=== PATIENT | female | born 1945 | race Caucasian/White ===

== ENCOUNTER 2017-10-02 08:28 | Day surgery (SDC) | payer OTHER, MEDICARE ==
[2017-10-02 09:49] VITALS: BMI 20.1
[2017-10-02] MEDS ORDERED: PROPOFOL 20 ML ONE ×5 (10:14)
[2017-10-02] MEDS ORDERED: LIDOCAINE HCL/PF 2% SDV 5ML VIAL ONE (10:14)
[2017-10-02 11:14] VITALS: TEMP 98.3
[2017-10-02] MEDS ORDERED: NITROGLYCERIN SUBLINGUAL 1/150 0.4 MG TAB ONE (11:32)
[2017-10-02 13:12] VITALS: BP 136/82; PULSE 62
--- NOTE | 2017-10-03 16:09 | PATH ---
Surgical Pathology Report Patient Name: BRIAN THACKER [facility]. Rec. #: [id number] /Age/Gender: 1945 (Age: 72) / F Account: [id number] Location: [facility]-ENDOSCOPY Taken: 10/02/2017 Received: 10/02/2017 Reported: 10/03/2017 Physicians: Kelsey Do M.D. Specimen(s) Received A: POLYP SIGMOID B: RECTAL POLYPS Clinical History Polyps surveillance Postoperative diagnosis: Colon polyps, diverticulosis Final Diagnosis A. SIGMOID, POLYP, POLYPECTOMY: TUBULAR ADENOMA. B. RECTAL POLYPS, BIOPSY: HYPERPLASTIC POLYPS. Electronically Signed Verona Felder M.D. Gross Description A. Received in formalin, labeled "sigmoid polyp" is a garcia, irregular portion of soft tissue measuring 0.8 cm. in greatest dimension. The specimen is submitted in toto in one cassette. B. Received in formalin, labeled "biopsy rectal polyps" are 4 garcia, irregular portions of soft tissue ranging from 0.1-0.4 cm. in greatest dimension. The specimens are submitted in toto in one cassette. /10/02/2017 saudi10/02/2017
== END 2017-10-02 11:55 | disposition home or self-care (01) ==
LOC: JASU-ENDO 08:28
PROVIDERS: ATTEND Internal Medicine Gastroenterology
PROC: 0DBP8ZX Excision of Rectum, Via Natural or Artificial Opening Endoscopic, Diagnostic (ICD-10-PCS; 2017-10-02)
PROC: 0DBN8ZX Excision of Sigmoid Colon, Via Natural or Artificial Opening Endoscopic, Diagnostic (ICD-10-PCS; principal; 2017-10-02 09:45)
DX: Z12.11 Encounter for screening for malignant neoplasm of colon (principal); Z83.71 Family history of colonic polyps; D12.5 Benign neoplasm of sigmoid colon; K62.1 Rectal polyp; K57.30 Diverticulosis of large intestine without perforation or abscess without bleeding; I10 Essential (primary) hypertension; M06.9 Rheumatoid arthritis, unspecified
CPT/HCPCS: 88305-TC

== ENCOUNTER 2018-06-01 07:26 | Day surgery (SDC) | payer OTHER, MEDICARE ==
[2018-05-31 17:07] VITALS: BMI 22.0
[2018-06-01] MEDS ORDERED: BUPIVACAINE HCL/PF 0.5% (5MG/ML) 10 ML VIAL ONE (08:51)
[2018-06-01] MEDS ORDERED: LIDOCAINE HCL 1%, 10 MG/ML (20ML VIAL) ONE (08:51)
[2018-06-01] MEDS ORDERED: MIDAZOLAM HCL 2 MG/2 ML SINGLE DOSE VIAL ONE (09:09)
[2018-06-01] MEDS ORDERED: PROPOFOL 20 ML ONE ×2 (09:09→09:34)
[2018-06-01] MEDS ORDERED: ceFAZolin SODIUM 1 GM VIAL IVPB ONE (09:17)
[2018-06-01] MEDS ORDERED: ceFAZolin SODIUM 1 GM VIAL ONE (09:22)
[2018-06-01] MEDS ORDERED: DEXAMETHASONE SOD PHOSPHATE 4 MG/1 ML VIAL ONE (09:23)
[2018-06-01] MEDS ORDERED: LIDOCAINE HCL 1%, 10 MG/ML (20ML VIAL) NR ONE (09:25)
[2018-06-01] MEDS ORDERED: BUPIVACAINE HCL/PF 0.5% (5MG/ML) 10 ML VIAL IJ ONE ×3 (09:26→09:39)
[2018-06-01] MEDS ORDERED: ONDANSETRON 4 MG/2 ML VIAL IVPUSH PRN (10:14)
[2018-06-01] MEDS ORDERED: LACTATED RINGERS SOLUTION 1,000 ML IV SCH (10:15)
[2018-06-01 12:26] VITALS: BP 134/70; PULSE 66; TEMP 97.5
--- NOTE | 2018-06-04 14:52 | PATH ---
Surgical Pathology Report Patient Name: BRIAN THACKER Med. Rec. #: [id number] /Age/Gender: 1945 (Age: 73) / F Account: [id number] Location: [facility] SURGICAL Taken: 06/01/2018 Received: 06/01/2018 Reported: 06/04/2018 Physicians: Randall Grigsby DPM Specimen(s) Received LEFT 4TH TOE Clinical History Hammertoe left toe Final Diagnosis FOURTH TOE, LEFT, AMPUTATION: BONE WITH FOCAL REACTIVE AND DEGENERATIVE CHANGES. SKIN AND UNDERLYING SOFT TISSUE WITHOUT SIGNIFICANT PATHOLOGIC FINDINGS. SURGICAL MARGINS ARE VIABLE. Electronically Signed Kelsey Penny M.D. Gross Description Received in formalin labeled "left fourth toe," is a 3.5 x 1.5 x 1.5 cm toe amputation specimen. The epidermal surface is unremarkable. No lesions are identified. The underlying bone is yellow and hard. [employer] sections are submitted in 3 cassettes as follows: 1-bone margin, following decalcification; 2-skin and soft tissue margin; 3-cross section of toe, following decalcification. /06/01/2018 [facility]06/01/2018
--- NOTE | 2018-06-05 09:09 | OP ---
DATE OF OPERATION: 06/01/2018 SURGEON: Randall Grigsby DPM [employer]: PREOPERATIVE DIAGNOSIS: Left foot 3rd digit osteomyelitis. POSTOPERATIVE DIAGNOSIS: Left foot 3rd digit osteomyelitis. PROCEDURE: Left foot 3rd digit amputation. ESTIMATED BLOOD LOSS: 5 mL. HEMOSTASIS: Pneumatic ankle tourniquet at 250 mmHg. ANESTHESIA: IV MAC with local. Patient was brought to the operating room table and placed in a supine position. After adequate IV sedation was given, the left foot was then injected with 8 mL of 1% lidocaine plain. At this time, the left foot was then draped and prepped in the usual aseptic fashion, and the tourniquet was applied to the ankle. After exsanguination of the left lower extremity, the pneumatic ankle tourniquet was inflated to 225 mmHg. At this time, attention was directed to the left 3rd metatarsophalangeal joint where a circumferential incision was made using a number-15 blade. At this time, the left 3rd metatarsophalangeal joint was then disarticulated and passed from the operative field for specimen. There was healthy bleeding noted throughout the surgical site, and surgical site was then reapproximated using 3-0 nylon in simple suture technique. Patient tolerated the procedure well, and the surgical site was then dressed with Adaptic, 4 x 4, Guille, and tape. The tourniquet was deflated at this time with a prompt hyperemic response noted to the left foot, and patient was transferred to PACU in good, stable condition with neurovascular status intact to the left foot. Patient disposition to home and weight bear as tolerated using the surgical shoe. dictating for YOSSI Reyes DPM /[id number]
== END 2018-06-01 12:00 | disposition home or self-care (01) ==
LOC: JASU-SURG 07:26
PROVIDERS: ATTEND Podiatrist Foot Surgery
PROC: 0Y6U0Z0 Detachment at Left 3rd Toe, Complete, Open Approach (ICD-10-PCS; principal; 2018-06-01 09:00)
DX: M86.9 Osteomyelitis, unspecified (principal); M20.42 Other hammer toe(s) (acquired), left foot; I10 Essential (primary) hypertension
CPT/HCPCS: 88305-TC; 88311-TC; 94760

== ENCOUNTER 2020-09-07 06:08 | Day surgery (SDC) | payer OTHER, MEDICARE ==
[2020-09-03 13:33] VITALS: BMI 23.2
[2020-09-07] MEDS ORDERED: ceFAZolin SODIUM 1 GM VIAL ONE ×2 (07:20→09:33)
[2020-09-07] MEDS ORDERED: GENTAMICIN SO4 80 MG/2 ML VIAL ONE (07:20)
[2020-09-07] MEDS ORDERED: MIDAZOLAM HCL 2 MG/2 ML SINGLE DOSE VIAL ONE (08:13)
[2020-09-07] MEDS ORDERED: PROPOFOL 20 ML ONE ×2 (08:13)
[2020-09-07] MEDS ORDERED: ROCURONIUM BROMIDE 50 MG/5 ML SYRINGE ONE (08:13)
[2020-09-07] MEDS ORDERED: LIDOCAINE HCL 2% JELLY (5 ML/TUBE) ONE (09:33)
[2020-09-07] MEDS ORDERED: DEXAMETHASONE SOD PHOSPHATE 4 MG/1 ML VIAL ONE (09:33)
[2020-09-07] MEDS ORDERED: LIDOCAINE HCL/PF 2% SDV 5ML VIAL ONE (09:33)
[2020-09-07] MEDS ORDERED: ONDANSETRON 4 MG/2 ML VIAL ONE (09:33)
[2020-09-07] MEDS ORDERED: EPHEDRINE SULFATE/0.9% NACL/PF 50 MG/10 ML SYRINGE NR ONE (09:59)
[2020-09-07] MEDS ORDERED: ONDANSETRON 4 MG/2 ML VIAL IVPUSH PRN (13:09)
[2020-09-07] MEDS ORDERED: oxyCODONE HCL 5 MG TABLET PO PRN ×3 (13:09→13:22)
[2020-09-07] MEDS ORDERED: LACTATED RINGERS SOLUTION 1,000 ML IV SCH ×2 (13:15→13:30)
[2020-09-07] MEDS ORDERED: ONDANSETRON 4 MG/2 ML VIAL IVPB PRN (13:22)
[2020-09-07] MEDS ORDERED: ALBUTEROL SO4 HFA INHALER IH PRN (13:30)
[2020-09-07] MEDS ORDERED: ACETAMINOPHEN 1000 MG/100 ML VIAL (NON FORMULARY) IVPB ONE (13:48)
[2020-09-07] MEDS ORDERED: ACETAMINOPHEN INJECTION 100 ML IVPB ONE (13:51)
[2020-09-07 14:53] VITALS: TEMP 97.8
[2020-09-07 15:31] VITALS: BP 130/82; PULSE 76
== END 2020-09-07 15:33 | disposition home or self-care (01) ==
LOC: FASU 06:08
PROVIDERS: ATTEND Plastic Surgery
PROC: 0HRV0JZ Replacement of Bilateral Breast with Synthetic Substitute, Open Approach (ICD-10-PCS; 2020-09-07)
PROC: 0HQV0ZZ Repair Bilateral Breast, Open Approach (ICD-10-PCS; 2020-09-07)
PROC: 0HPU0JZ Removal of Synthetic Substitute from Left Breast, Open Approach (ICD-10-PCS; principal; 2020-09-07 09:20)
PROC: 0HPT0JZ Removal of Synthetic Substitute from Right Breast, Open Approach (ICD-10-PCS; 2020-09-07 09:20)
DX: T85.44XA Capsular contracture of breast implant, initial encounter (principal); Y82.8 Other medical devices associated with adverse incidents; Y92.9 Unspecified place or not applicable; N64.81 Ptosis of breast; K13.0 Diseases of lips
CPT/HCPCS: 11950; 15777; 19342; 19380; L8600; 88300-TC; 88304-TC; 94760; J0131

== ENCOUNTER 2020-10-23 04:50 | Day surgery (SDC) | payer OTHER, MEDICARE ==
[2020-10-21 17:50] VITALS: BMI 23.2
[2020-10-23] MEDS ORDERED: LIDOCAINE HCL 1%, 10 MG/ML (20ML VIAL) ONE (12:34)
[2020-10-23] MEDS ORDERED: MIDAZOLAM HCL 2 MG/2 ML SINGLE DOSE VIAL ONE ×2 (13:19→13:20)
[2020-10-23] MEDS ORDERED: LIDOCAINE HCL 1%, 10 MG/ML (20ML VIAL) PNB ONE (13:28)
[2020-10-23] MEDS ORDERED: ceFAZolin SODIUM 1 GM VIAL IVPB ONE (13:34)
[2020-10-23] MEDS ORDERED: PROPOFOL 20 ML ONE (13:37)
[2020-10-23] MEDS ORDERED: oxyCODONE HCL 5 MG TABLET PO PRN (13:43)
[2020-10-23] MEDS ORDERED: BUPIVACAINE HCL/PF 0.5% (5MG/ML) 10 ML VIAL PNB ONE ×2 (13:44→14:03)
[2020-10-23] MEDS ORDERED: ceFAZolin SODIUM 1 GM VIAL ONE (14:07)
[2020-10-23] MEDS ORDERED: DEXAMETHASONE SOD PHOSPHATE 4 MG/1 ML VIAL ONE (14:07)
[2020-10-23 14:25] VITALS: TEMP 97.5
[2020-10-23 16:02] VITALS: BP 164/80; PULSE 66
== END 2020-10-23 15:25 | disposition home or self-care (01) ==
LOC: JASU-SURG 04:50
PROVIDERS: ATTEND Podiatrist Foot Surgery
PROC: 0Y6V0Z0 Detachment at Right 4th Toe, Complete, Open Approach (ICD-10-PCS; principal; 2020-10-23 13:00)
DX: M06.9 Rheumatoid arthritis, unspecified (principal); M20.41 Other hammer toe(s) (acquired), right foot
CPT/HCPCS: 88304-TC; 88311-TC

== ENCOUNTER 2021-01-19 04:52 | Day surgery (SDC) | payer OTHER, MEDICARE ==
[2021-01-15 19:00] VITALS: BMI 22.8
[2021-01-19 12:16] VITALS: TEMP 97.2
[2021-01-19 13:17] VITALS: BP 156/70; PULSE 61
[2021-01-19 13:33] LABS: BLOOD UREA NITROGEN 17.4 mg/dL (7-18); CALCIUM 9.2 mg/dL (8.5-10.1)
[2021-01-19 13:37] LABS: CREATININE 0.9 mg/dL (0.55-1.3)
== END 2021-01-19 13:06 | disposition home or self-care (01) ==
LOC: JASU-ENDO 04:52
PROVIDERS: ATTEND Internal Medicine Gastroenterology
PROC: 0DB78ZX Excision of Stomach, Pylorus, Via Natural or Artificial Opening Endoscopic, Diagnostic (ICD-10-PCS; 2021-01-19)
PROC: 0DB68ZX Excision of Stomach, Via Natural or Artificial Opening Endoscopic, Diagnostic (ICD-10-PCS; principal; 2021-01-19 12:15)
DX: K31.7 Polyp of stomach and duodenum (principal); K44.9 Diaphragmatic hernia without obstruction or gangrene; K29.50 Unspecified chronic gastritis without bleeding
CPT/HCPCS: 36415; 80048

== ENCOUNTER 2021-02-02 04:31 | Day surgery (SDC) | payer OTHER, MEDICARE ==
[2021-01-29 13:33] VITALS: BMI 22.8
[2021-02-02 12:42] VITALS: BP 161/98; PULSE 63
[2021-02-02 12:53] VITALS: TEMP 97
== END 2021-02-02 12:56 | disposition home or self-care (01) ==
LOC: JASU-ENDO 04:31
PROVIDERS: ATTEND Internal Medicine Gastroenterology
PROC: 0DBP8ZX Excision of Rectum, Via Natural or Artificial Opening Endoscopic, Diagnostic (ICD-10-PCS; principal; 2021-02-02 11:00)
DX: D12.8 Benign neoplasm of rectum (principal); K57.30 Diverticulosis of large intestine without perforation or abscess without bleeding; K64.8 Other hemorrhoids; R93.3 Abnormal findings on diagnostic imaging of other parts of digestive tract
CPT/HCPCS: 88305-TC

== ENCOUNTER 2021-11-12 04:16 | Day surgery (SDC) | payer OTHER, MEDICARE ==
[2021-11-10 15:02] VITALS: BMI 22.6
[~2021-11-12 04:16] MED LIST: BUPIVACAINE HCL/PF 0.75% 10 ML VIAL NR ONE
[2021-11-12] MEDS ORDERED: BUPIVACAINE HCL/PF 0.75% 10 ML VIAL ONE (07:56)
[2021-11-12] MEDS ORDERED: LIDOCAINE HCL/PF 1% SDV 5ML VIAL ONE (07:56)
[2021-11-12 08:45] VITALS: PULSE 60
[2021-11-12] MEDS ORDERED: LIDOCAINE HCL 1% PRESERVATIVE FREE - 30ML VIAL IJ ONE (10:52)
[2021-11-12] MEDS ORDERED: BUPIVACAINE HCL/PF 0.75% 10 ML VIAL NR ONE (11:04)
[2021-11-12 11:32] VITALS: BP 178/81; RESP 18; TEMP 98.8
== END 2021-11-12 11:32 | disposition home or self-care (01) ==
LOC: JASU-SURG 04:16
PROVIDERS: ATTEND Pain Medicine Pain Medicine
PROC: BR16YZZ Fluoroscopy of Lumbar Facet Joint(s) using Other Contrast (ICD-10-PCS; 2021-11-12)
PROC: 3E0T3BZ Introduction of Anesthetic Agent into Peripheral Nerves and Plexi, Percutaneous Approach (ICD-10-PCS; principal; 2021-11-12 10:00)
DX: M47.816 Spondylosis without myelopathy or radiculopathy, lumbar region (principal)
CPT/HCPCS: 76000-TC-FY

== ENCOUNTER 2022-04-29 04:03 | Day surgery (SDC) | payer OTHER, MEDICARE ==
[2022-04-25 16:12] VITALS: BMI 22.6
[2022-04-29 06:39] VITALS: RESP 16
[2022-04-29] MEDS ORDERED: LIDOCAINE HCL/PF 1% SDV 5ML VIAL ONE (07:26)
[2022-04-29 10:21] VITALS: BP 134/54; PULSE 65; TEMP 96.9
== END 2022-04-29 09:30 | disposition home or self-care (01) ==
LOC: JASU-SURG 04:03
PROVIDERS: ATTEND Pain Medicine Pain Medicine
PROC: 01HY3MZ Insertion of Neurostimulator Lead into Peripheral Nerve, Percutaneous Approach (ICD-10-PCS; principal; 2022-04-29 08:31)
DX: G89.4 Chronic pain syndrome (principal); G58.8 Other specified mononeuropathies
CPT/HCPCS: 64555; C1778; 76000-TC-FY

== ENCOUNTER 2022-05-17 04:13 | Day surgery (SDC) | payer OTHER, MEDICARE ==
[2022-05-12 13:23] VITALS: BMI 22.6
[~2022-05-17 04:13] MED LIST changes: -BUPIVACAINE HCL/PF 0.75% 10 ML VIAL NR ONE; +LIDOCAINE HCL 1% PRESERVATIVE FREE - 30ML VIAL IJ ONE; +LIDOCAINE HCL 2% (50ML VIAL) NR ONE
[2022-05-17] MEDS ORDERED: LIDOCAINE HCL/PF 2% SDV 5ML VIAL ONE (07:27)
[2022-05-17] MEDS ORDERED: BUPIVACAINE HCL/PF 0.25% (2.5MG/ML) 10 ML VIAL ONE (07:27)
[2022-05-17] MEDS ORDERED: LIDOCAINE HCL/PF 1% SDV 5ML VIAL ONE (07:28)
[2022-05-17 09:47] VITALS: RESP 18
[2022-05-17] MEDS ORDERED: LIDOCAINE HCL 1% PRESERVATIVE FREE - 30ML VIAL IJ ONE ×2 (10:20)
[2022-05-17] MEDS ORDERED: LIDOCAINE HCL/PF 2% SDV 5ML VIAL INF ONE ×2 (10:22)
[2022-05-17 11:28] VITALS: BP 127/80; PULSE 68; TEMP 97.9
== END 2022-05-17 11:17 | disposition home or self-care (01) ==
LOC: JASU-SURG 04:13
PROVIDERS: ATTEND Pain Medicine Pain Medicine
PROC: 01HY3MZ Insertion of Neurostimulator Lead into Peripheral Nerve, Percutaneous Approach (ICD-10-PCS; principal; 2022-05-17 11:00)
DX: G89.4 Chronic pain syndrome (principal)
CPT/HCPCS: 64555; C1778; 76000-TC-FY

== ENCOUNTER 2022-06-14 04:06 | Day surgery (SDC) | payer OTHER, MEDICARE ==
[2022-06-07 17:46] VITALS: BMI 22.6
[~2022-06-14 04:06] MED LIST changes: +ACETAMINOPHEN 500 MG TABLET (FP) PO PRN; +LIDOCAINE 1% P/F 10 MG/ML VIAL PNB ONE; -LIDOCAINE HCL 1% PRESERVATIVE FREE - 30ML VIAL IJ ONE; -LIDOCAINE HCL 2% (50ML VIAL) NR ONE
[2022-06-14 09:30] VITALS: RESP 18
[2022-06-14] MEDS ORDERED: LIDOCAINE 1% P/F 10 MG/ML VIAL PNB ONE (10:32)
[2022-06-14] MEDS ORDERED: LIDOCAINE HCL/PF 1% SDV 5ML VIAL ONE (12:00)
[2022-06-14 13:53] VITALS: BP 138/72; PULSE 71; TEMP 97.9
[2022-06-14] MEDS ORDERED: ACETAMINOPHEN 500 MG TABLET (FP) PO PRN (15:55)
== END 2022-06-14 11:26 | disposition home or self-care (01) ==
LOC: JASU-SURG 04:06
PROVIDERS: ATTEND Pain Medicine Pain Medicine
PROC: 01HY3MZ Insertion of Neurostimulator Lead into Peripheral Nerve, Percutaneous Approach (ICD-10-PCS; principal; 2022-06-14 11:00)
DX: G89.4 Chronic pain syndrome (principal); M54.50 Low back pain, unspecified
CPT/HCPCS: 64555; C1778; 76000-TC-FY

== ENCOUNTER 2022-07-12 03:54 | Day surgery (SDC) | payer OTHER, MEDICARE ==
[2022-07-07 14:05] VITALS: BMI 22.8
[2022-07-12] MEDS ORDERED: LIDOCAINE HCL/PF 1% SDV 5ML VIAL ONE (07:21)
[2022-07-12] MEDS ORDERED: LIDOCAINE HCL 1% PRESERVATIVE FREE - 30ML VIAL IJ ONE (08:40)
[2022-07-12 09:15] VITALS: RESP 18
[2022-07-12 09:53] VITALS: BP 144/79; PULSE 74; TEMP 98
[2022-07-12] MEDS ORDERED: ACETAMINOPHEN 500 MG TABLET (FP) PO PRN (11:34)
== END 2022-07-12 09:50 | disposition home or self-care (01) ==
LOC: JASU-SURG 03:54
PROVIDERS: ATTEND Pain Medicine Pain Medicine
PROC: 01HY3MZ Insertion of Neurostimulator Lead into Peripheral Nerve, Percutaneous Approach (ICD-10-PCS; principal; 2022-07-12 08:00)
DX: G89.4 Chronic pain syndrome (principal)
CPT/HCPCS: 64555; C1778; 76000-TC-FY

== ENCOUNTER 2022-11-02 06:52 | Emergency (ER) | payer OTHER, MEDICARE ==
[2022-11-02 07:20] VITALS: BP 171/84; PULSE 75; RESP 18; TEMP 97.6; BMI 22.6
[2022-11-02 08:01] LABS: HEMATOCRIT 36.7 % (32.4-45.2); HEMOGLOBIN 11.9 GM/dL (10.7-15.3); LYMPH % 28.6 % (8-40); MCH 28.7 pg (25.7-33.7); MCHC 32.5 g/dl (32.0-36.0); MEAN CELL VOLUME 88.4 fl (80-96); MEAN PLT VOLUME 9.6 fl (7.5-11.1); MONO % 10.7 % (3.8-10.2); NEUT % 53.7 % (42.8-82.8); PLATELET COUNT 227 10^3/uL (134-434); RBC 4.15 M/mm3 (3.60-5.2); RDW 13.6 % (11.6-15.6); WHITE BLOOD COUNT 4.2 K/mm3 (4.0-10.0)
[2022-11-02 08:06] LABS: INR 0.99 (0.83-1.09); PROTHROMBIN TIME (PATIENT) 11.5 SEC (9.7-13.0)
[2022-11-02 10:25] LABS: CALCIUM 8.9 mg/dL (8.5-10.1)
[2022-11-02 10:26] LABS: ALBUMIN 3.3 g/dl (3.4-5.0)
[2022-11-02 10:29] LABS: CREATININE 1.2 mg/dL (0.55-1.3)
[2022-11-02 10:30] LABS: BILIRUBIN,TOTAL 0.4 mg/dL (0.2-1); TOT PROT 6.5 g/dl (6.4-8.2)
== END 2022-11-02 10:03 | disposition left against medical advice (07) ==
LOC: JER 06:52
DX: H53.122 Transient visual loss, left eye (principal); H57.12 Ocular pain, left eye; R20.0 Anesthesia of skin; R11.0 Nausea; H53.9 Unspecified visual disturbance
CPT/HCPCS: 36415; 70450-TC; 80053; 80061; 82550; 83036; 84484; 85025; 85610; 85730; 86850; 86900; 86901; 93005; 93010; 99285-25

== ENCOUNTER 2023-01-07 22:29 | Emergency (ER) | payer OTHER, MEDICARE ==
[2023-01-07 22:41] VITALS: BP 123/68; PULSE 60; RESP 22; TEMP 97.9; BMI 22.6
[2023-01-07] MEDS ORDERED: SODIUM CHLORIDE 0.9% 500 ML INFUS.BAG IV ONE (23:08)
[2023-01-07] MEDS ORDERED: ONDANSETRON 4 MG/2 ML VIAL IVPUSH ONE (23:08)
[2023-01-07] MEDS ORDERED: ONDANSETRON 4 MG/2 ML VIAL ONE (23:32)
[2023-01-07 23:50] LABS: BASO % 1.1 % (0-2.0); EOS % 2.6 % (0-4.5); HEMATOCRIT 36.5 % (32.4-45.2); HEMOGLOBIN 12.1 GM/dL (10.7-15.3); MCH 29.1 pg (25.7-33.7); MCHC 33.2 g/dl (32.0-36.0); MEAN CELL VOLUME 87.5 fl (80-96); MEAN PLT VOLUME 8.3 fl (7.5-11.1); MONO % 9.4 % (3.8-10.2); NEUT % 67.9 % (42.8-82.8); PLATELET COUNT 262 10^3/uL (134-434); RBC 4.18 M/mm3 (3.60-5.2); RDW 13.8 % (11.6-15.6); WHITE BLOOD COUNT 6.1 K/mm3 (4.0-10.0)
[2023-01-08 01:02] LABS: POTASSIUM 3.9 mmol/L (3.5-5.1)
[2023-01-08 01:04] LABS: CALCIUM 9.2 mg/dL (8.5-10.1)
[2023-01-08 01:05] LABS: ALBUMIN 3.5 g/dl (3.4-5.0); BLOOD UREA NITROGEN 25.5 mg/dL (7-18)
[2023-01-08 01:08] LABS: CREATININE 1.3 mg/dL (0.55-1.3)
[2023-01-08 01:09] LABS: BILIRUBIN,TOTAL 0.3 mg/dL (0.2-1); TOT PROT 6.8 g/dl (6.4-8.2)
[2023-01-08 02:15] LABS: URINE APPEARANCE CLEAR; URINE BILIRUBIN NEGATIVE (NEGATIVE); URINE COLOR YELLOW; URINE GLUCOSE (UA) NEGATIVE (NEGATIVE); URINE KETONE TRACE (NEGATIVE); URINE LEUK ESTERASE NEGATIVE (NEGATIVE); URINE NITRITE NEGATIVE (NEGATIVE); URINE PROTEIN NEGATIVE (NEGATIVE); URINE UROBILINOGEN 0.2 mg/dL (0.2-1.0)
== END 2023-01-08 04:20 | disposition home or self-care (01) ==
LOC: JER 22:29
PROC: 3E033GC Introduction of Other Therapeutic Substance into Peripheral Vein, Percutaneous Approach (ICD-10-PCS; principal; 2023-01-07)
DX: R11.2 Nausea with vomiting, unspecified (principal); R61 Generalized hyperhidrosis; R55 Syncope and collapse; K44.9 Diaphragmatic hernia without obstruction or gangrene
CPT/HCPCS: 36415; 70450-TC; 71046-TC-FY; 80053; 81003; 84484; 85025; 87086; 93005; 93010; 99285-25

== ENCOUNTER 2023-02-13 04:39 | Observation (INO) | payer OTHER, MEDICARE ==
[2023-02-09 11:44] VITALS: BMI 22.8
[2023-02-13] MEDS ORDERED: EPINEPHrine 1:10,000 (P-F SYR) 1 MG/10 ML DISP.SYRIN ONE (09:21)
[2023-02-13 09:37] VITALS: TEMP 98.2
[2023-02-13 09:49] VITALS: RESP 16
[2023-02-13] MEDS ORDERED: PATIENT'S OWN MEDICATION (NON-FORMULARY) (Albuterol Sulfate [Proair Digihaler] 90 MCG Aer. IH PRN (11:06)
[2023-02-13 12:31] VITALS: PULSE 69
[2023-02-13 13:30] LABS: BASO % 0.8 % (0-2.0); EOS % 2.4 % (0-4.5); HEMATOCRIT 37.4 % (32.4-45.2); LYMPH % 20.9 % (8-40); MCH 28.8 pg (25.7-33.7); MCHC 32.2 g/dl (32.0-36.0); MEAN CELL VOLUME 89.4 fl (80-96); MEAN PLT VOLUME 8.5 fl (7.5-11.1); MONO % 7.2 % (3.8-10.2); NEUT % 68.7 % (42.8-82.8); PLATELET COUNT 247 10^3/uL (134-434); RBC 4.19 M/mm3 (3.60-5.2); RDW 13.5 % (11.6-15.6); WHITE BLOOD COUNT 6.7 K/mm3 (4.0-10.0)
[2023-02-13 13:39] LABS: PROTHROMBIN TIME (PATIENT) 11.6 SEC (9.7-13.0)
[2023-02-13 13:44] VITALS: BP 149/60
[2023-02-13 13:44] LABS: POTASSIUM 4.3 mmol/L (3.5-5.1)
[2023-02-13 13:46] LABS: ALBUMIN 3.5 g/dl (3.4-5.0)
[2023-02-13 13:47] LABS: MAGNESIUM 2.2 mg/dL (1.8-2.4)
[2023-02-13 13:49] LABS: CREATININE 1.1 mg/dL (0.55-1.3)
[2023-02-13 13:51] LABS: BILIRUBIN,TOTAL 0.4 mg/dL (0.2-1); TOT PROT 6.8 g/dl (6.4-8.2)
[2023-02-14] MEDS ORDERED: PATIENT'S OWN MEDICATION (NON-FORMULARY) (Leflunomide [Arava] 20 MG Tablet) PO SCH (10:00)
[2023-02-14] MEDS ORDERED: LOSARTAN POTASSIUM 50 MG TABLET PO SCH (10:00)
[2023-02-14] MEDS ORDERED: HYDROCHLOROTHIAZIDE 12.5 MG CAPSULE (FP) PO SCH (10:00)
== END 2023-02-13 13:44 | disposition left against medical advice (07) ==
LOC: JASU-ENDO 04:39 → J2C 11:15
PROVIDERS: ADMIT Internal Medicine; ATTEND Internal Medicine
PROC: 0DJ08ZZ Inspection of Upper Intestinal Tract, Via Natural or Artificial Opening Endoscopic (ICD-10-PCS; principal; 2023-02-13 09:00)
DX: R00.1 Bradycardia, unspecified (principal); K44.9 Diaphragmatic hernia without obstruction or gangrene; K29.50 Unspecified chronic gastritis without bleeding; I10 Essential (primary) hypertension; M06.9 Rheumatoid arthritis, unspecified
CPT/HCPCS: 36415; 80053; 83735; 84484; 85025; 85610; 93005; 93010; G0378

== ENCOUNTER 2023-05-23 04:17 | Day surgery (SDC) | payer OTHER, MEDICARE ==
[2023-05-12 15:12] VITALS: BMI 22.6
[2023-05-23] MEDS ORDERED: DEXAMETHASONE SOD PHOSPHATE 4 MG/1 ML VIAL ONE (08:49)
[2023-05-23] MEDS ORDERED: SODIUM CHLORIDE 0.9% P/F 10 ML VIAL IJ ONE ×2 (08:49→08:57)
[2023-05-23] MEDS ORDERED: LIDOCAINE HCL/PF 2% SDV 5ML VIAL ONE (08:49)
[2023-05-23] MEDS ORDERED: KETOROLAC TROMETHAMINE 30 MG/1 ML VIAL ONE (08:49)
[2023-05-23] MEDS ORDERED: ONDANSETRON 4 MG/2 ML VIAL ONE ×2 (08:49→15:25)
[2023-05-23] MEDS ORDERED: METOCLOPRAMIDE HCL INJECTION 10 MG/2 ML VIAL ONE ×2 (08:49→17:42)
[2023-05-23] MEDS ORDERED: ROCURONIUM BROMIDE 50 MG/5 ML SYRINGE ONE ×3 (08:50→12:35)
[2023-05-23] MEDS ORDERED: SUCCINYLCHOLINE CHLORIDE 200 MG/10 ML SYRINGE ONE (08:51)
[2023-05-23] MEDS ORDERED: HYDROmorphone HCl 2 MG/ML VIAL ONE (08:57)
[2023-05-23] MEDS ORDERED: MAGNESIUM SULF 50% (8.12 MEQ/2 ML-1 GM VIAL) ONE (10:02)
[2023-05-23] MEDS ORDERED: ALBUTEROL SO4 HFA INHALER IH ONE (10:04)
[2023-05-23] MEDS ORDERED: BUPIVACAINE HCL/PF 0.25% (2.5MG/ML) 10 ML VIAL ONE (10:12)
[2023-05-23] MEDS: cefOXitin SODIUM 2 GM VIAL (RESTRICTED TO ID) IVPB ONE (10:30)
[2023-05-23] MEDS ORDERED: GLYCOPYRROLATE 0.2 MG/1 ML VIAL ONE (10:59)
[2023-05-23] MEDS: BUPIVACAINE HCL/PF 0.25% (2.5MG/ML) 10 ML VIAL IJ ONE ×2 (11:05)
[2023-05-23] MEDS ORDERED: METOPROLOL TARTRATE 5 MG/5 ML VIAL ONE (11:09)
[2023-05-23] MEDS ORDERED: ACETAMINOPHEN INJECTION 100 ML IVPB ONE (11:31)
[2023-05-23] MEDS ORDERED: PROPOFOL 20 ML ONE (12:21)
[2023-05-23] MEDS ORDERED: LIDOCAINE HCL 2% JELLY 6 ML TP ONE (13:19)
[2023-05-23] MEDS ORDERED: LABETALOL HCL 20 MG/4 ML VIAL ONE (13:21)
[2023-05-23] MEDS ORDERED: ALBUTEROL SO4 HFA INHALER IH PRN (13:49)
[2023-05-23] MEDS: ONDANSETRON 4 MG/2 ML VIAL IVPUSH SCH (14:00)
[2023-05-23] MEDS: PANTOPRAZOLE SODIUM 40 MG VIAL IVPUSH ONE (14:00)
[2023-05-23] MEDS ORDERED: ONDANSETRON 4 MG/2 ML VIAL IVPUSH PRN (14:08)
[2023-05-23] MEDS: ACETAMINOPHEN 1000 MG/100 ML BAG IVPB SCH (14:30)
[2023-05-23] MEDS: CEFAZOLIN SODIUM 2 GM in DEXTROSE 5%-WATER 100 ML IVPB ONE (15:19)
[2023-05-23] MEDS: METOCLOPRAMIDE HCL INJECTION 10 MG/2 ML VIAL IVPUSH SCH (18:00)
[2023-05-23] MEDS: SCOPOLAMINE HYDROBROMIDE 1 PATCH PATCH.TD72 TD SCH (18:00)
[2023-05-23] MEDS: ACETAMINOPHEN INJECTION 100 ML IVPB ONE (20:00)
[2023-05-24] MEDS: LACTATED RINGERS SOLUTION 1,000 ML IV SCH (01:09)
[2023-05-24] MEDS: METOCLOPRAMIDE HCL INJECTION 10 MG/2 ML VIAL IVPUSH SCH (01:09)
[2023-05-24] MEDS ORDERED: [UNRECOGNIZED DRUG - OTHER] PO SCH (10:00)
[2023-05-24] MEDS ORDERED: VITAMIN D3 PO SCH (10:00)
[2023-05-24] MEDS ORDERED: MULTIVITAMINS (DAILY MVI) TABLET (FP) PO SCH (10:00)
[2023-05-24] MEDS ORDERED: CYANOCOBALAMIN 1,000 MCG TABLET (FP) PO SCH (10:00)
[2023-05-24] MEDS ORDERED: CALCIUM 500MG/VIT-D 200 UNITS COMBO TABLET (FP) PO SCH (10:00)
[2023-05-24] MEDS ORDERED: PATIENT'S OWN MEDICATION (NON-FORMULARY) (Cyanocobalamin (Vitamin B-12) [Vitamin B-12] 1,0 PO SCH (10:00)
[2023-05-24] MEDS ORDERED: MULTIVITAMIN PO SCH (10:00)
[2023-05-24] MEDS ORDERED: CALCIUM CARBONATE PO SCH (10:00)
[2023-05-24] MEDS: LOSARTAN POTASSIUM 50 MG TABLET PO SCH (10:10)
[2023-05-24] MEDS: ENOXAPARIN NA (PORCINE) 30 MG/0.3 ML DISP.SYRIN SQ SCH (10:10)
[2023-05-24] MEDS: HYDROCHLOROTHIAZIDE 12.5 MG CAPSULE (FP) PO SCH (10:10)
[2023-05-24] MEDS: LACTATED RINGERS SOLUTION 1,000 ML/1,000 ML INFUS.BAG IV SCH (10:11)
[2023-05-24] MEDS: PATIENT'S OWN MEDICATION (NON-FORMULARY) (Leflunomide [Arava] 20 MG Tablet) PO SCH (13:54)
[2023-05-24 14:14] VITALS: BP 148/70; PULSE 62; RESP 18; TEMP 97.3
== END 2023-05-24 15:45 | disposition home or self-care (01) ==
LOC: JASUSAT 04:17 → JASU-SURG 04:17 → J8W 21:05 → JASUSAT 05-24 15:45
PROVIDERS: ATTEND Surgery
PROC: 0DV44ZZ Restriction of Esophagogastric Junction, Percutaneous Endoscopic Approach (ICD-10-PCS; principal; 2023-05-23 10:30)
DX: K44.9 Diaphragmatic hernia without obstruction or gangrene (principal)
CPT/HCPCS: 74220-TC-FY; 86850; 86900; 86901; 94760; J0131

== ENCOUNTER 2024-08-22 05:43 | Day surgery (SDC) | payer OTHER, MEDICARE ==
[2024-08-22] MEDS ORDERED: ACETAMINOPHEN 500 MG TABLET (FP) PO PRN (08:53)
[2024-08-22 09:01] VITALS: RESP 18; TEMP 98.1
[2024-08-22] MEDS: LIDOCAINE HCL 1% PRESERVATIVE FREE - 30ML VIAL IJ ONE (10:44)
[2024-08-22] MEDS ORDERED: DEXAMETHASONE SOD PHOSPHATE 10 MG/1 ML VIAL ONE (10:54)
[2024-08-22] MEDS: LIDOCAINE HCL/PF 2% SDV 5ML VIAL INF ONE ×2 (11:04)
[2024-08-22] MEDS: BUPIVACAINE HCL/PF 0.75% 10 ML VIAL NR ONE ×2 (11:15)
[2024-08-22] MEDS: DEXAMETHASONE SOD PHOSPHATE 10 MG/1 ML VIAL IM ONE ×2 (11:15)
[2024-08-22 11:37] VITALS: BP 134/67; PULSE 73
== END 2024-08-22 11:33 | disposition home or self-care (01) ==
LOC: JASU-SURG 05:43
PROVIDERS: ATTEND Pain Medicine Pain Medicine
PROC: 015B3ZZ Destruction of Lumbar Nerve, Percutaneous Approach (ICD-10-PCS; principal; 2024-08-22 10:30)
DX: M47.816 Spondylosis without myelopathy or radiculopathy, lumbar region (principal)
CPT/HCPCS: 76000-TC-FY; J1100